=== PATIENT | male | born 1985 | race Two or more races ===

== ENCOUNTER 2016-04-30 19:24 | Emergency (ER) | payer SELFPAY ==
[~2016-04-30] VITALS: Ht 182.9 cm; Wt 81.6 kg
[2016-04-30] MEDS ORDERED: NKM (19:34)
[2016-04-30 19:35] VITALS: BP 132/85
[2016-04-30 20:31] LABS: BASOPHILS % (AUTO) 1.3 % (0.0-2.0); EOSINOPHILS % (AUTO) 0.3 % (0.0-3.0); LYMPHOCYTES % (AUTO) 29.9 % (20.0-45.0); MEAN CORPUSCULAR HEMOGLOBIN 30.4 PG (27.0-31.0); MEAN CORPUSCULAR HGB CONC 32.2 G/DL (32.0-36.0); MEAN CORPUSCULAR VOLUME 95 FL (80-99); MEAN PLATELET VOLUME 5.4 FL (6.5-10.1); NEUTROPHILS % (AUTO) 60.6 % (45.0-75.0); PLATELET COUNT 172 K/UL (150-450); RED BLOOD COUNT 4.48 M/UL (4.70-6.10); RED CELL DISTRIBUTION WIDTH 13.9 % (11.6-14.8); WHITE BLOOD COUNT 3.6 K/UL (4.8-10.8)
[2016-04-30 20:53] LABS: ALANINE AMINOTRANSFERASE 201 U/L (3-41); ALBUMIN/GLOBULIN RATIO 1.3 (1.0-2.7); ANION GAP 18 (5-15); ASPARTATE AMINO TRANSFERASE 256 U/L (5-40); CALCIUM 9.1 mg/dL (8.6-10.2); CARBON DIOXIDE 28 mEQ/L (20-30); CHLORIDE 100 mEQ/L (98-107); CREATININE 0.8 mg/dL (0.7-1.2); GLOMERULAR FILTRATION RATE > 60 mL/min (>60); HEMOLYSIS 6; LIPASE 33 U/L (< 60); POTASSIUM 3.2 mEQ/L (3.4-4.9); SODIUM 146 mEQ/L (135-145); TOTAL PROTEIN 7.2 g/dL (6.6-8.7)
[2016-04-30 21:38] LABS: APPEARANCE,URINE CLEAR; KETONES,URINE NEGATIVE (NEGATIVE); LEUKOCYTE ESTERASE ,URINE 1+ (NEGATIVE); NITRITE,URINE NEGATIVE (NEGATIVE); PH,URINE 7 (4.5-8.0); PROTEIN,URINE 2+ (NEGATIVE); UROBILINOGEN,URINE 4 MG/DL (0.0-1.0)
--- NOTE | 2016-04-30 21:50 | Emergency Room Report ---
History of Present Illness General Chief Complaint: Vomiting Source: Patient Present Illness HPI The patient is a 30-year-old male with a stated history of alcohol abuse and pancreatitis presenting for upper abdominal pain and vomiting which began today. The pt states he has been drinking heavily and has vomited twice today with streaks of blood. Pain is a 10/10 sharp sensation to the upper abdomen and radiates to the entire abdomen. No known provoking or relieving factors. The pt denies any other symptoms including CP, SOB, cough, myalgia, diaphoresis, numbness/tingling, weakness, melena, hematochezia, hematemesis Pt denies recent travel. Allergies: Coded Allergies: No Known Allergies (Unverified , 04/30/16) Patient History Past Medical History: see triage record Pertinent Family History: none Reviewed Nursing Documentation: PMH: Agreed, PSxH: Agreed Nursing Documentation-PMH Hx Diabetes: Yes Hx Gastrointestinal Problems: Yes - PANCREATITIS Review of Systems All Other Systems: negative except mentioned in HPI Physical Exam Vital Signs Date Time Temp Pulse Resp B/P Pulse Ox O2 Delivery O2 Flow Rate FiO2 04/30/16 19:28 97.9 107 8 132/85 96 Room Air Sp02 EP Interpretation: reviewed, normal General Appearance: no apparent distress, alert, GCS 15, non-toxic Head: normocephalic, atraumatic Eyes: bilateral eye PERRL, bilateral eye normal inspection Respiratory: chest non-tender, lungs clear, normal breath sounds, no accessory muscle use, no wheezing, speaking full sentences Cardiovascular #1: regular rate, rhythm, no edema Cardiovascular #2: 2+ carotid (R), 2+ carotid (L), 2+ radial (R), 2+ radial (L) , 2+ dorsalis pedis (R), 2+ dorsalis pedis (L) Gastrointestinal: normal bowel sounds, soft, non-distended, no guarding, tenderness - epigastric Genitourinary: normal inspection, no CVA tenderness Musculoskeletal: back normal, gait/station normal, normal range of motion, non- tender Neurologic: alert, oriented x3, responsive, motor strength/tone normal, sensory intact, speech normal Psychiatric: judgement/insight normal, memory normal, mood/affect normal, no suicidal/homicidal ideation Skin: normal color, no rash, warm/dry, well hydrated Lymphatic: no adenopathy Medical Decision Making PA Attestation Dr. Blanc is my supervising physician. Patient management was discussed with my supervising physician Diagnostic Impression: Primary Impression: Alcohol abuse ER Course The patient is a 30-year-old male with a stated history of alcohol abuse and pancreatitis presenting for upper abdominal pain and vomiting which began today. DDx: pancreatitis, gastritis, hepatitis, nile arredondo tear PE: Initial tachycardia. All vitals WNL at time of DC. Afebrile. NAD. A&Ox3. Abd is soft. Non-distended. TTP epigastric region. Normal BS. No discoloration. Labs: CBC unremarkable. No leukocytosis, no anemia. CMP remarkable for hypokalemia and elevated AST/ALT UA: unremarkable CXR: unremarkable. No free air. Pt is given IV fluids, zofran, and pepcid and is feeling better. Tylenol given for pain. K replaced with oral KCl The pt is counseled on drinking cessation. ER precautions given and pt is DC'ed. Laboratory Tests Test 04/30/16 20:20 White Blood Count 3.6 K/UL (4.8-10.8) L Red Blood Count 4.48 M/UL (4.70-6.10) L Hemoglobin 13.6 G/DL (14.2-18.0) L Hematocrit 42.4 % (42.0-52.0) Mean Corpuscular Volume 95 FL (80-99) Mean Corpuscular Hemoglobin 30.4 PG (27.0-31.0) Mean Corpuscular Hemoglobin Concent 32.2 G/DL (32.0-36.0) Red Cell Distribution Width 13.9 % (11.6-14.8) Platelet Count 172 K/UL (150-450) Mean Platelet Volume 5.4 FL (6.5-10.1) L Neutrophils (%) (Auto) 60.6 % (45.0-75.0) Lymphocytes (%) (Auto) 29.9 % (20.0-45.0) Monocytes (%) (Auto) 8.0 % (1.0-10.0) Eosinophils (%) (Auto) 0.3 % (0.0-3.0) Basophils (%) (Auto) 1.3 % (0.0-2.0) Urine Color Yellow Urine Appearance Clear Urine pH 7 (4.5-8.0) Urine Specific Evans 1.015 (1.005-1.035) Urine Protein 2+ (NEGATIVE) H Urine Glucose (UA) Negative (NEGATIVE) Urine Ketones Negative (NEGATIVE) Urine Occult Blood Negative (NEGATIVE) Urine Nitrite Negative (NEGATIVE) Urine Bilirubin Negative (NEGATIVE) Urine Urobilinogen 4 MG/DL (0.0-1.0) H Urine Leukocyte Esterase 1+ (NEGATIVE) H Urine RBC 0-2 /HPF (0 - 0) H Urine WBC 2-4 /HPF (0 - 0) Urine Squamous Epithelial Cells None /LPF (NONE/OCC) Urine Bacteria Occasional /HPF (NONE) Sodium Level 146 mEQ/L (135-145) H Potassium Level 3.2 mEQ/L (3.4-4.9) L Chloride Level 100 mEQ/L (98-107) Carbon Dioxide Level 28 mEQ/L (20-30) Anion Gap 18 (5-15) H Blood Urea Nitrogen 9 mg/dL (7-23) Creatinine 0.8 mg/dL (0.7-1.2) Estimate Glomerular Filtration Rate > 60 mL/min (>60) Glucose Level 139 mg/dL (74-106) H Calcium Level 9.1 mg/dL (8.6-10.2) Total Bilirubin 0.3 mg/dL (0.0-1.2) Aspartate Amino Transferase (AST) 256 U/L (5-40) H Alanine Aminotransferase (ALT) 201 U/L (3-41) H Alkaline Phosphatase 151 U/L (40-129) H Total Protein 7.2 g/dL (6.6-8.7) Albumin 4.1 g/dL (3.5-5.2) Globulin 3.1 g/dL Albumin/Globulin Ratio 1.3 (1.0-2.7) Amylase Level 76 U/L (10-110) Lipase 33 U/L (< 60) Lab Results Impression CBC unremarkable. No leukocytosis, no anemia. CMP remarkable for hypokalemia and elevated AST/ALT UA: unremarkable Chest X-Ray Diagnostic Results EP Interpretation: Yes Findings: no consolidation, no effusion, no pneumothorax, no acute cardiopulmonary disease Number of Views: 1 PA Scribe Text I'm acting as scribe for my supervising physician. No acute findings. Last Vital Signs Date Time Temp Pulse Resp B/P Pulse Ox O2 Delivery O2 Flow Rate FiO2 04/30/16 19:35 97.9 107 16 132/85 96 Room Air Status: improved Disposition: HOME, SELF-CARE Condition: Improved Scripts Ondansetron* (ZOFRAN*) 4 Mg Tablet 4 MG ORAL Q6H Y for Nausea & Vomiting, #10 TAB Prov: LAXMI ARREOLA 04/30/16 Famotidine (PEPCID) 40 Mg Tablet 40 MG PO DAILY, #7 TAB 0 Refills Prov: LAXMI ARREOLA 04/30/16 Referrals: NOT CHOSEN IPA/,REFERRING (PCP) LAXMI ARREOLA Apr 30, 2016 21:50
[2016-04-30] MEDS ORDERED: ZOFRAN4 M3 ORAL (21:53)
[2016-04-30] MEDS ORDERED: PEPCID40 MG PO (21:53)
[2016-04-30 21:56] LABS: BACTERIA,URINE OCCASIONAL /HPF; RBC,URINE 0-2 /HPF (0 - 0)
[2016-04-30] MEDS ORDERED: Famotidine 20 MG/ 2ML VIAL IVP ONE (22:00)
[2016-04-30 22:15] VITALS: BP 134/77
[2016-04-30 22:20] VITALS: BP 134/77
--- NOTE | 2016-05-01 11:53 | Diagnostic Imaging Report ---
Indication: Chest Pain Comparison: None A single view chest radiograph was obtained. Findings: Cardiomediastinal appearance is within normal limits for age. Pulmonary vascularity is appropriate. The diaphragmatic contour is smooth and costophrenic angles are sharp. No pleural effusions are identified. The bones are unremarkable. Impression: No acute findings
== END 2016-04-30 22:20 | disposition home or self-care (01) ==
LOC: EMR 19:59
DX: F10.10 Alcohol abuse, uncomplicated (principal); R10.10 Upper abdominal pain, unspecified; E11.9 Type 2 diabetes mellitus without complications; Z87.19 Personal history of other diseases of the digestive system
CPT/HCPCS: 36415; 71010; 80053; 81003; 82150; 83690; 85025; 96361; 96374; 96375; 99284; J2405; S0028; J8499